=== PATIENT | female | born 1995 | race Caucasian/White ===

== ENCOUNTER 2021-04-07 16:30 | Emergency (ER) | payer MEDICAID, SELFPAY ==
[2021-04-07 16:31] VITALS: BP 135/76; PULSE 105; RESP 16; TEMP 36.6; O2SAT 100; BMI 21.2
[2021-04-07 21:20] VITALS: O2SAT 97
--- NOTE | 2021-04-07 21:21 | ED.RN ---
3nurses ad 1 medic have made attempts for IV and lab draw, with no success. Two nurses asked to take a look. Waiting on line to send labs and given meds.
[2021-04-07 21:58] LABS: Amphetamine Urine VISTA POSITIVE (<1000 ng/mL); Barbiturate Urine VISTA NEGATIVE (< 200 ng/mL); Benzodiazepine Urine VISTA NEGATIVE (< 200 ng/mL); Cocaine Urine VISTA NEGATIVE (< 300 ng/mL); Ecstacy Urine VISTA NEGATIVE (< 500 ng/mL); Methadone Urine VISTA NEGATIVE (< 300 ng/mL); PCP Urine VISTA NEGATIVE (< 25 ng/mL); THC Urine VISTA NEGATIVE (< 50 ng/mL); Vista UDS pH Range 7
--- NOTE | 2021-04-07 22:19 | CM.ED ---
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 Annette ENGLISH
[2021-04-07] MEDS: cloNIDine HCl 0.1 MG Tablet PO (22:22)
[2021-04-07 22:23] LABS: Absolute Lymphocyte Count 1.62 X10^3/uL (0.83-4.51); Absolute Neutrophil Count 4.4 X10^3/uL (2.0-7.7); Basophil# 0.04 X10^3/uL; Basophil% 0.6 % (0-1); Eosinophils% 2.9 % (0-5); Hematocrit 31.4 % (37-47); Hemoglobin 9.5 g/dL (12.0-15.0); Lymphocyte # 1.62 X10^3/ul (0.83-4.51); Lymphocyte % 23.2 % (19-41); Mean Corp Hgb Conc 30.3 g/dL (32-36); Mean Corpuscular Hgb 23.9 pg (27.0-32.0); Mean Corpuscular Volume 78.9 fL (81-99); Mean Platelet Vol. 9.5 fl (6.2-12.0); Monocyte# 0.74 X10^3/uL; Monocyte% 10.6 % (0-10); NRBC Flagged by Analyzer 0 % (0-5); Neutrophil # 4.37 X10^3/uL (2.7-7.7); Neutrophil % 62.4 % (47-70); Platelet Count 411 K/mm3 (150-450); RBC Distribution Width CV 14.8 % (11.6-14.6); RBC Distribution Width SD 42.8 fl (35.1-43.9); Red Blood Count 3.98 M/mm3 (4.2-5.4)
[2021-04-07 22:29] VITALS: BP 121/74; PULSE 78; RESP 17; O2SAT 98
[2021-04-07 22:35] LABS: Alcohol, Blood (Medical)-Serum < 3.0 mg/dL; Internal QC Validated? YES +Cl - CLEAR BKGD; Pregnancy, Serum, hCG Quali. NEGATIVE Negative
[2021-04-07 22:37] LABS: Anion Gap 2 (5-15); BUN 6 mg/dL (7-18); BUN/Creat Ratio 11.6 RATIO (10-20); Calcium,Total 8.6 mg/dL (8.5-10.1); Chloride 110 mmol/L (98-107); Creatinine, Serum 0.52 mg/dL (0.55-1.02); EST Glomerular Filtration Rate 154 mL/min (>60); Est Glom Filt Rate - Afr Amer 186 mL/min (>60); Glucose 111 mg/dL (74-106); Potassium 4.1 mmol/L (3.5-5.1); Sodium Level 140 mmol/L (136-145)
--- NOTE | 2021-04-07 22:47 | EX.ED.SAOD ---
HPI History of Present Illness Chief Complaint: Substance Abuse Informant: patient Onset/Context/Timing Onset: Yesterday Context: Gradual Onset Timing: Continuous Worsened by: Nothing Relieved by: Nothing Associated Symptoms Associated Symptoms: Positive for vomiting* and fever*; Negative for seizure, tremor, palpatations, change in mental status, suicidal ideation and homicidal ideation Narrative Narrative: Patient presents requesting detox from heroin. Patient states she does not know exactly how much she uses every day. Patient states her last use was last night. Patient states she went through detox proxy 1 year ago. Patient states she started using again over the past month. Patient denies any suicidal homicidal ideations. Patient admits to some subjective chills. Patient also admits to some rhinorrhea and sore throat. Patient also admits to some nausea and vomiting. Patient denies any chest pain. Patient also states she has been having some abscesses on her forearms where she injects. Patient has an open wound on her right forearm where one of the abscesses had been drained. [facility] Medical History DVT (deep venous thrombosis) Home Medications Iron 1 tab PO DAILY 10/19/15 [History Last Taken 10/18/15 10:30] Prenatabs FA 1 tab PO DAILY 10/19/15 [History Last Taken 10/18/15 10:30] apixaban [Eliquis] 5 mg PO DAILY 04/07/21 [History Last Taken Unknown] Allergy/AdvReac Type Severity Reaction Status Date / Time Penicillins Allergy Swelling Verified 04/07/21 16:33 morphine AdvReac Rash Verified 04/07/21 16:33 Social History Smoking Status: Current every day smoker tobacco type: cigarettes ROS ROS ED Constitutional Constitutional ED: Reports chills and subjective; Denies fever(s) Eyes Eyes: Denies blurry vision or change in vision ENT ENT ED: Reports rhinorrhea and sore throat Cardiovascular Cardiovascular: Denies chest pain or palpitations Respiratory/Chest Respiratory/Chest: Reports cough and dyspnea Gastrointestinal Gastrointestinal: Reports nausea and vomiting Genitourinary Genitourinary ED: Denies dysuria or hematuria Musculoskeletal Musculoskeletal: Reports back pain; Denies neck pain Integumentary Reports abscess and rash Neurologic Neurologic: Denies headache(s) or weakness Allergic/Immunologic Allergic/Immunologic ED: Denies mouth swelling or urticaria EXAM Physical Exam Const Vital Signs: 04/07/21 16:31 04/07/21 21:20 04/07/21 22:29 Temperature 97.9 F Temperature Source Temporal Pulse Rate 105 H 78 Respiratory Rate 16 17 Blood Pressure 135/76 H 121/74 H Blood Pressure Mean 95 89 Pulse Ox 100 97 98 Oxygen Delivery Method Room Air Room Air Positive well nourished and well developed General Appearance ED: well developed HEENT Reports moist mucous membranes Neck supple and no JVD Resp normal respiratory effort and clear to auscultation bilaterally Cardio regular rate and regular rhythm GI soft to palpation, non-tender and non-distended Neuro oriented x3, CN's II-XII intact bilaterally and no sensory deficits noted Sensorium / Orientation: alert Speech: speech normal Motor Exam: strength 5/5 throughout Skin Skin Narrative: There is an open draining abscess over the right forearm. There are multiple other areas of erythema and induration over the forearms bilaterally. There is no fluctuance or evidence of any abscess in these areas. Radial pulses are equal bilaterally. Sensation was intact to light touch bilaterally in the upper and lower extremities. MDM MDM MDM Narrative Medical decision making narrative: Patient was given a dose of clindamycin and vancomycin here. Patient was also given a dose of clonidine here. CBC and basic metabolic profile were obtained and were within normal limits. Urine tox screen was positive for amphetamines. Serum hCG was negative. Serum alcohol level was negative. Patient states that she wants to be detoxed with Subutex. Patient was informed that we do not do this here. After this, the patient states that she no longer wants to be admitted for detox. Patient was discharged home. Patient was instructed to follow-up with 180. Patient was instructed return if she wants detox. Patient understands and is agreeable with the plan. All questions were answered. Lab Data Attestation: I reviewed the patient's lab results. Labs: Laboratory Results - last 24 hr 04/07/21 04/07/21 04/07/21 19:43 21:14 22:15 WBC Cancelled Corrected WBC Cancelled RBC Cancelled Hgb Cancelled Hct Cancelled MCV Cancelled MCH Cancelled MCHC Cancelled RDW Std Deviation Cancelled RDW Coeff of Jaden Cancelled Plt Count Cancelled MPV Cancelled Immature Gran % (Auto) Cancelled Neut % (Auto) Cancelled Lymph % (Auto) Cancelled Barbour % (Auto) Cancelled Eos % (Auto) Cancelled Baso % (Auto) Cancelled Absolute Neuts (auto) Cancelled Absolute Lymphs (auto) Cancelled Total Counted Cancelled Neutrophils % (Manual) Cancelled Band Neutrophils % Cancelled Lymphocytes % (Manual) Cancelled Monocytes % (Manual) Cancelled Eosinophils % (Manual) Cancelled Basophils % (Manual) Cancelled Metamyelocytes % Cancelled Myelocytes % Cancelled Promyelocytes % Cancelled Blast Cells % Cancelled Plasma Cell % (Manual) Cancelled Other Cells % Cancelled Nucleated RBC % Cancelled Nucleated RBCs/100 WBC Cancelled Differential Comment Cancelled Diff Path Review Cancelled Hypersegmented Neuts Cancelled Atypical Lymphocytes Cancelled Reactive Lymphocytes Cancelled Smudge Cells Cancelled Toxic Granulation Cancelled Toxic Vacuolation Cancelled Dohle Bodies Cancelled Brigitte Rods Cancelled Platelet Estimate Cancelled Plt Morphology Comment Cancelled RBC Morphology Cancelled Polychromasia Cancelled Hypochromasia Cancelled Poikilocytosis Cancelled Basophilic Stippling Cancelled Anisocytosis Cancelled Microcytosis Cancelled Macrocytosis Cancelled Spherocytes Cancelled Sickle Cells Cancelled Target Cells Cancelled Tear Drop Cells Cancelled Ovalocytes Cancelled Stomatocytes Cancelled [employer] Bodies Cancelled Clark Cells Cancelled Bite Cells Cancelled Crenated Cell Cancelled Acanthocytes (Spur) Cancelled Rouleaux Cancelled Schistocytes Cancelled Sodium 140 Potassium 4.1 Chloride 110 H Carbon Dioxide 28.0 Anion Gap 2 L BUN 6 L Creatinine 0.52 L Estim Creat Clear Calc 138.00 Est GFR (MDRD) Af Amer 186 Est GFR (MDRD) Non-Af 154 BUN/Creatinine Ratio 11.6 Glucose 111 H Calcium 8.6 Serum , Qual Urine Opiates Screen NEGATIVE Urine Methadone Screen NEGATIVE Ur Barbiturates Screen NEGATIVE Ur Phencyclidine Scrn NEGATIVE Ur Amphetamines Screen POSITIVE H U Methamphetamin-MDMA NEGATIVE U Benzodiazepines Scrn NEGATIVE Urine Cocaine Screen NEGATIVE U Cannabinoids Screen NEGATIVE Ur Drug Screen Comment Ethyl Alcohol 04/07/21 04/07/21 04/07/21 22:15 22:15 22:15 WBC 7.0 Corrected WBC RBC 3.98 L Hgb 9.5 L Hct 31.4 L MCV 78.9 L MCH 23.9 L MCHC 30.3 L RDW Std Deviation 42.8 RDW Coeff of Jaden 14.8 H Plt Count 411 MPV 9.5 Immature Gran % (Auto) 0.300 Neut % (Auto) 62.4 Lymph % (Auto) 23.2 Barbour % (Auto) 10.6 H Eos % (Auto) 2.9 Baso % (Auto) 0.6 Absolute Neuts (auto) 4.4 Absolute Lymphs (auto) 1.62 Total Counted Neutrophils % (Manual) Band Neutrophils % Lymphocytes % (Manual) Monocytes % (Manual) Eosinophils % (Manual) Basophils % (Manual) Metamyelocytes % Myelocytes % Promyelocytes % Blast Cells % Plasma Cell % (Manual) Other Cells % Nucleated RBC % 0 Nucleated RBCs/100 WBC Differential Comment Diff Path Review Hypersegmented Neuts Atypical Lymphocytes Reactive Lymphocytes Smudge Cells Toxic Granulation Toxic Vacuolation Dohle Bodies Brigitte Rods Platelet Estimate Plt Morphology Comment RBC Morphology Polychromasia Hypochromasia Poikilocytosis Basophilic Stippling Anisocytosis Microcytosis Macrocytosis Spherocytes Sickle Cells Target Cells Tear Drop Cells Ovalocytes Stomatocytes [employer] Bodies [place] Cells Bite Cells Crenated Cell Acanthocytes (Spur) Rouleaux Schistocytes Sodium Potassium Chloride Carbon Dioxide Anion Gap BUN Creatinine Estim Creat Clear Calc Est GFR (MDRD) Af Amer Est GFR (MDRD) Non-Af BUN/Creatinine Ratio Glucose Calcium Serum , Qual NEGATIVE Urine Opiates Screen Urine Methadone Screen Ur Barbiturates Screen Ur Phencyclidine Scrn Ur Amphetamines Screen U Methamphetamin-MDMA U Benzodiazepines Scrn Urine Cocaine Screen U Cannabinoids Screen Ur Drug Screen Comment Ethyl Alcohol < 3.0 Discharge Plan Triage Chief Complaint: Substance Abuse ED Provider: Gary Solorio Dx/Rx/DC Orders Clinical Impression: Opiate abuse, continuous Instructions: ED Opiate Abuse Prescriptions: No Action Iron 1 tab PO DAILY RF: 0 Prenatabs FA 1 tab PO DAILY RF: 0 Eliquis 5 mg tablet 5 mg PO DAILY RF: 0 Primary Care Provider: Care Physician,No Primary Referrals: Care Physician,No Primary [Primary Care Provider] - [facility] [STAFF PHYSICIAN] - As soon as possible Disposition Disposition: Home, Self Care
--- NOTE | 2021-04-07 22:52 | NURSING ---
Dr Solorio is aware patient will stay for the detox only if we do the subutec, and he states we cannot do that and patient is aware and states she is leaving. Talked with patient to at least stay for as much antibiotic as possible. She is agreeable and will push the button when her ride is here.
[2021-04-07 23:16] VITALS: BP 115/85; PULSE 102; RESP 16; O2SAT 98
[2021-04-07 23:17] VITALS: O2SAT 98
== END 2021-04-07 23:55 | disposition home or self-care (01) ==
PROVIDERS: Emergency Provider Emergency Medicine
DX: F11.10 Opioid abuse, uncomplicated (principal); L02.413 Cutaneous abscess of right upper limb; F17.210 Nicotine dependence, cigarettes, uncomplicated
CPT/HCPCS: 80048; 80307; 82077; 84703; 85025; 87040; 96365; 99284; J7050; A4216